=== PATIENT | male | born 1980 | race American Indian/Alaskan Native ===

== ENCOUNTER 2017-11-20 21:46 | Emergency (ER) | payer MEDICAID ==
[2017-11-20 21:46] VITALS: BMI 21.7
[2017-11-20 22:20] VITALS: RESP 16
--- NOTE | 2017-11-20 23:48 | ED PDOC ---
HPI: General Adult History Per: Patient Additional Complaint(s): Pt. states since 2002 he's had joint pain throughout his entire body. States he currently sees Dr. Aguilera his neurologist for the pain and gets physical therapy for it. States he experiences the pain everyday and pain does not change. Symptoms today are consistent with pain in the past. Denies trauma, fever, numbness, tingling, weakness. Pt. states he was dx with arthritis by Dr. Aguilera. <Erik Reddy - Last Filed: 11/21/17 03:46> <Franck Edwards - Last Filed: 11/21/17 06:50> Time Seen by Provider: 11/20/17 22:41 Chief Complaint (Nursing): Pain, Chronic Past Medical History Reviewed: Historical Data, Nursing Documentation, Vital Signs Vital Signs: Last Vital Signs Temp 98.6 F 11/20/17 22:17 Pulse 97 H 11/20/17 22:17 Resp 16 11/20/17 22:17 BP 150/94 H 11/20/17 22:17 Pulse Ox 99 11/20/17 22:17 - Medical History PMH: Arthritis - Family History Family History: States: No Known Family Hx - Immunization History Hx Tetanus Toxoid Vaccination: No Hx Influenza Vaccination: No Hx Pneumococcal Vaccination: No <Erik Reddy - Last Filed: 11/21/17 03:46> Vital Signs: Last Vital Signs Temp 98 F 11/21/17 00:07 Pulse 78 11/21/17 00:07 Resp 16 11/21/17 00:07 BP 130/82 11/21/17 00:07 Pulse Ox 99 11/21/17 03:46 <Franck Edwards - Last Filed: 11/21/17 06:50> - Home Medications Home Medications: Ambulatory Orders Medication Instructions Recorded RX: Home Med 1 unit PO DAILY 11/18/17 Meloxicam [Mobic] 7.5 mg PO DAILY PRN #10 tab 11/20/17 - Allergies Allergies/Adverse Reactions: Allergies Allergy/AdvReac Type Severity Reaction Status Date / Time No Known Allergies Allergy Verified 11/18/17 19:03 Review of Systems ROS Statement: Except As Marked, All Systems Reviewed And Found Negative <Erik Reddy - Last Filed: 11/21/17 03:46> Physical Exam - Physical Exam Appears: Positive for: Well, Non-toxic, No Acute Distress Head Exam: Positive for: ATRAUMATIC, NORMAL INSPECTION, NORMOCEPHALIC Skin: Positive for: Normal Color, Warm. Negative for: Rash Pulses-Dorsalis Pedis (L): 2+ Pulses-Dorsalis Pedis (R): 2+ Pulses-Radial (L): 2+ Pulses-Radial (R): 2+ Extremity: Positive for: Normal ROM (throughout all joints actively). Negative for: Tenderness (throughout all joints), Pedal Edema, Calf Tenderness, Swelling (throughout all joints) Neurologic/Psych: Positive for: Alert, Oriented (x3), Gait (steady, unassisted) <Erik Reddy - Last Filed: 11/21/17 03:46> - ECG O2 Sat by Pulse Oximetry: 99 - Progress ED Course And Treament: Toradol 30mg IM ordered. <Erik Reddy - Last Filed: 11/21/17 03:46> Disposition - Patient ED Disposition Is Patient to be Admitted: No - Disposition Disposition: Routine/Home Disposition Time: 23:47 <Erik Reddy - Last Filed: 11/21/17 03:46> <Franck Edwards - Last Filed: 11/21/17 06:50> - Clinical Impression Clinical Impression: Arthralgia - Disposition Referrals: Anibal Aguilera MD [Medical Doctor] - [facility] [Outside] Condition: STABLE Additional Instructions: FOLLOW UP WITH DR. AGUILERA FOR FURTHER EVALUATION LEEANN MESSINA, thank you for letting us take care of you today. Your provider was Franck Edwards MD and you were treated for BODY PAIN. The emergency medical care you received today was directed at your acute symptoms. If you were prescribed any medication, please fill it and take as directed. It may take several days for your symptoms to resolve. Return to the Emergency Department if your symptoms worsen, do not improve, or if you have any other problems. Please contact your doctor or call one of the physicians/clinics you have been referred to that are listed on the Patient Visit Information form that is included in your discharge packet. Bring any paperwork you were given at discharge with you along with any medications you are taking to your follow up visit. Our treatment cannot replace ongoing medical care by a primary care provider outside of the emergency department. Thank you for allowing the [facility] team to be part of your care today. If you had an X-Ray or CT scan: A Radiologist will review the ED reading if any change in treatment is needed we will contact you. If you had a blood, urine, or wound culture: It will take several days for the results, if any change in treatment is needed we will contact you. If you had an STI test: It will take 48 hours for the results. Please call after 1 week if you have not heard back. 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 <Franck Edwards - Last Filed: 11/21/17 06:50>
[2017-11-21 00:08] VITALS: BP 130/82; PULSE 78; TEMP 98
[2017-11-21 01:11] VITALS: O2SAT 99
== END 2017-11-21 00:07 | disposition home or self-care (01) ==
LOC: H.ER 21:46
DX: M19.90 Unspecified osteoarthritis, unspecified site (principal)
CPT/HCPCS: 96372; 99283; J1885